=== PATIENT | female | born 1970 ===

== ENCOUNTER 2023-09-16 05:38 | Day surgery (SDC) | payer OTHER ==
[2023-09-10 11:47] LABS: URINE APPEARANCE Clear; URINE BILIRRUBIN Negative (NEGATIVE); URINE BLOOD Negative; URINE COLOR Yellow; URINE GLUCOSE Negative (NEGATIVE); URINE LEUKOCYTE Negative; URINE NITRATE Negative; URINE PROTEIN Negative (NEGATIVE); URINE UROBILINOGEN 0.2 E.U./dl
[2023-09-10 11:51] LABS: URINE BACTERIA 3036.3 uL (0.0-1933); URINE EPITHELIAL CELLS 21.7 uL (0.0-38.8); URINE WBC 2.9 uL (0.0-23.2)
[2023-09-10 11:59] LABS: HEMATOCRIT 30.7 % (36.0-45.00); HEMOGLOBIN 9.6 g/dL (12.0-15.00); MEAN CELL VOLUME 71.7 fL (80.00-100.00); MEAN CORPUSCULAR HEMOGLOBIN 22.4 pg (27.00-32.0); MEAN CORPUSCULAR HGB CONC 31.3 g/dl (32.0-36.0); PLATELET COUNT 373 K/uL (150-450); RED BLOOD COUNT 4.28 M/uL (4.00-6.00)
[2023-09-10 12:07] LABS: INR 1.05; PARTIAL THROMBOPLASTIN TIME 28.1 SECONDS (22.0-34.0)
[2023-09-10 12:30] LABS: ALBUMIN 3.9 gm/dL (3.4-5.0); BILIRUBIN TOTAL 1.01 mg/dL (0.3-1.2); CALCIUM 9.5 mg/dL (8.5-10.1); CREATININE SERUM 0.81 mg/dL (0.55-1.02); GFR 74.25; GLOBULINA 4.1 G/DL (2.4-3.5); POTASSIUM 4.19 mEq/L (3.5-5.1)
[~2023-09-16] VITALS: Ht 165.1 cm; Wt 73.9 kg
[~2023-09-16 05:38] MED LIST: SYNTHROID175 MCG PO
[2023-09-16] MEDS ORDERED: CEFAZOLIN SODIUM 1,000 MG VIAL ONE (10:34)
[2023-09-16] MEDS ORDERED: CEFAZOLIN SODIUM 1,000 MG VIAL IV ONE (12:00)
== END 2023-09-16 14:30 | disposition home or self-care (01) ==
LOC: CIR.AMB 05:38
PROVIDERS: ATTEND Orthopaedic Surgery Hand Surgery
DX: M67.431 Ganglion, right wrist (principal); E11.9 Type 2 diabetes mellitus without complications; E78.00 Pure hypercholesterolemia, unspecified; I10 Essential (primary) hypertension